=== PATIENT | male | born 1990 | race Caucasian/White ===

== ENCOUNTER 2024-05-12 08:01 | Emergency (ER) | payer SELFPAY ==
[2024-05-12] MEDS: Lidocaine 1% with EPINEPHrine 1:100,000 10 ML MDV INJECT ONE (08:45)
== END 2024-05-12 09:29 | disposition home or self-care (01) ==
LOC: MW.ED 08:01
DX: L02.212 Cutaneous abscess of back [any part, except buttock and flank] (principal); Z88.0 Allergy status to penicillin; Z79.899 Other long term (current) drug therapy
CPT/HCPCS: 10060; 99283-25